=== PATIENT | female | born 1965 | race Caucasian/White ===

== ENCOUNTER → 2017-01-07 | Outpatient (CLI) | payer BC ==
--- NOTE | 2017-01-08 11:01 | MM ---
Reason for exam: screening (asymptomatic). Last mammogram was performed 1 year and 1 month ago. History: Patient is postmenopausal. Family history of breast cancer in mother at age 79. Took hormonal contraceptives for 15 years. Physical Findings: A clinical breast exam by your physician is recommended on an annual basis and results should be correlated with mammographic findings. MG Screening Mammo w CAD Bilateral CC and MLO view(s) were taken. Prior study comparison: December 08, 2015, bilateral MG screening mammo w CAD. June 14, 2015, right breast MG 3d diag mammo w/cad RT. There are scattered fibroglandular densities. There is no discrete abnormality. No significant changes when compared with prior studies. ASSESSMENT: Negative, BI-RAD 1 RECOMMENDATION: Routine screening mammogram of both breasts in 1 year.
== END | disposition home or self-care (01) ==
LOC: RADMAMWWP 16:33
PROVIDERS: ATTEND Family Medicine
DX: Z12.31 Encounter for screening mammogram for malignant neoplasm of breast (principal)

== ENCOUNTER → 2018-01-21 | Outpatient (CLI) | payer BC ==
--- NOTE | 2018-01-22 11:26 | MM ---
Reason for exam: screening (asymptomatic). Last mammogram was performed 1 year ago. History: Patient is postmenopausal. Family history of breast cancer in mother at age 79. Took hormonal contraceptives for 15 years. Physical Findings: A clinical breast exam by your physician is recommended on an annual basis and results should be correlated with mammographic findings. MG 3D Screening Mammo W/Cad Bilateral CC and MLO view(s) were taken. Prior study comparison: January 07, 2017, bilateral MG screening mammo w CAD. December 08, 2015, bilateral MG screening mammo w CAD. There are scattered fibroglandular densities. There is chronic nodularity in the right breast. There is no discrete abnormality. ASSESSMENT: Benign, BI-RAD 2 RECOMMENDATION: Routine screening mammogram of both breasts in 1 year.
== END | disposition home or self-care (01) ==
LOC: RADMAMWWP 16:38
PROVIDERS: ATTEND Family Medicine
DX: Z12.31 Encounter for screening mammogram for malignant neoplasm of breast (principal)
CPT/HCPCS: 77063; 77067

== ENCOUNTER 2018-01-23 16:16 | Emergency (ER) | payer BC ==
[2018-01-23 16:36] VITALS: RESP 18
--- NOTE | 2018-01-23 17:06 | ED ---
General Adult HPI - General Chief complaint: Extremity Injury, Upper Stated complaint: pain in rt shoulder Time Seen by Provider: 01/23/18 16:42 Source: patient, RN notes reviewed Mode of arrival: ambulatory Limitations: no limitations - History of Present Illness Initial comments: Shows a 52-year-old female who presents the emergency department with complaints of right shoulder pain. She stated that this pain started after she had a tetanus vaccine late December. Denies any trauma. She states she has seen her primary doctor and has tried Robaxin, naproxen, Flexeril, and Ultram without relief. She states that she has pain over her right neck and shoulder blade area with pain and tingling going down her arm with numbness in her hand. Patient denies any recent fever, chills, shortness of breath, chest pain, back pain, abdominal pain, nausea or vomiting, constipation or diarrhea, headaches or visual changes, or any other complaints. - Related Data Previous Rx's Medication Instructions Recorded Diazepam [Valium] 10 mg PO HS PRN 3 Days #3 tab 01/23/18 Ibuprofen [Motrin] 600 mg PO Q8HR PRN #40 day 01/23/18 Allergies Allergy/AdvReac Type Severity Reaction Status Date / Time Penicillins Allergy Anaphylaxis Verified 01/23/18 16:32 Review of Systems ROS Statement: Those systems with pertinent positive or pertinent negative responses have been documented in the HPI. ROS Other: All systems not noted in ROS Statement are negative. Past Medical History Past Medical History: No Reported History History of Any Multi-Drug Resistant Organisms: None Reported Past Surgical History: Appendectomy, Section, Tonsillectomy Past Psychological History: No Psychological Hx Reported Smoking Status: Never smoker Past Alcohol Use History: None Reported Past Drug Use History: None Reported General Exam - General Exam Comments Initial Comments: General: The patient is awake and alert, in no distress, and does not appear acutely ill. Neck: Slight tenderness to the right-sided musculature with movement and palpation. No obvious deformities. No bony tenderness. Full ROM. Cardiovascular: There is a regular rate and rhythm. No murmur, rub or gallop is appreciated. Radial pulses 2+ bilaterally. Respiratory: Lungs are clear to auscultation, respirations are non-labored, breath sounds are equal. No wheezes, stridor, rales, or rhonchi. Musculoskeletal: Full ROM of bilateral shoulders, elbows and hands. Strength 5/ 5 bilateral upper extremities. Neurological: A&O x 3. There are no obvious motor deficits. Coordination appears grossly intact. Speech is normal. Skin: Skin is warm and dry and no rashes or lesions are noted. No erythema over the right shoulder. Psychiatric: Normal mood and affect. Limitations: no limitations Course Vital Signs 01/23/18 16:32 Temperature 97.3 F L Pulse Rate 80 Respiratory 18 Rate Blood Pressure 156/92 O2 Sat by Pulse 100 Oximetry Medical Decision Making - Medical Decision Making Patient is a 52-year-old female who presents the emergency department with complaints of right shoulder pain radiating to the right trapezius area and the right upper extremity following a vaccination from late December. X-ray of the cervical spine revealed spondylotic changes. X-ray of the right shoulder was negative. Upon reexamination, she was crying saying she was in pain. She was given a dose of Toradol and Valium here. Will prescribe ibuprofen for pain and Valium for muscle spasms (switch from Flexeril to Valium). Will have her follow-up with Orthopedics. Case seen and discussed with Dr. Moreno. Disposition Clinical Impression: Cervical spondylosis with radiculopathy Disposition: HOME SELF-CARE Condition: Good Instructions: Cervical Radiculopathy (ED) Additional Instructions: Follow-up with PCP and orthopedics in 2 days. Return to emergency department if symptoms worsen or any other concerns. Prescriptions: Diazepam [Valium] 10 mg PO HS PRN 3 Days #3 tab PRN Reason: Muscle Spasm Ibuprofen [Motrin] 600 mg PO Q8HR PRN #40 day PRN Reason: Pain Is patient prescribed a controlled substance at d/c from ED?: Yes When asked, does pt state using other controlled substances?: Yes If prescribed controlled substance>3 days was MAPS reviewed?: Prescribed <3 Days Referrals: Windy Hadley MD [Primary Care Provider] - 1-2 days Devon Hall DO [Doctor of Osteopathic Medicine] - 1-2 days Time of Disposition: 19:16
--- NOTE | 2018-01-23 18:15 | XR ---
EXAMINATION TYPE: XR shoulder complete RT DATE OF EXAM: 01/23/2018 COMPARISON: NONE HISTORY: Shoulder pain TECHNIQUE: 3 views FINDINGS: I see no fracture nor dislocation. Joint spaces are normal. There are no pathologic calcifi cations. IMPRESSION: Negative right shoulder exam.
--- NOTE | 2018-01-23 18:16 | XR ---
EXAMINATION TYPE: XR cervical spine comp DATE OF EXAM: 01/23/2018 COMPARISON: NONE HISTORY: Shoulder pain TECHNIQUE: 6 views FINDINGS: There is some straightening of the vertebra. There is mild spurring of the endplates at lev els from C4 to C7. Posterior elements are intact. Atlantoaxial facet joint is normal. There are no ce rvical ribs. Neural foramina show minimal encroachment at C6-7 on the right side and C5-6 C6-7 on the left side due to uncovertebral spurring. IMPRESSION: Spondylotic changes as above. No fracture.
[2018-01-23] MEDS ORDERED: DIAZEPAM 5 MG/ML 2 ML INJ IM ONE (18:46)
[2018-01-23] MEDS ORDERED: KETOROLAC 30 MG/ML 1 ML VIAL IM STA (18:46)
[2018-01-23 19:29] VITALS: BP 129/83; PULSE 85; TEMP 98.3
== END 2018-01-23 19:28 | disposition home or self-care (01) ==
LOC: EC 16:16
DX: M47.22 Other spondylosis with radiculopathy, cervical region (principal); Z88.0 Allergy status to penicillin
CPT/HCPCS: 72050; 73030; 99283; 96372 ×2; J3360; J1885

== ENCOUNTER → 2018-04-09 | Outpatient (CLI) | payer BC ==
--- NOTE | 2018-04-09 14:10 | US ---
EXAMINATION TYPE: US thyroid st tissue head/neck DATE OF EXAM: 04/09/2018 COMPARISON: NONE CLINICAL HISTORY: E04.1 Thyroid Nodule. GLAND SIZE: Right Lobe: 3.7 x 1.7 x 1.8 cm Overall Parenchyma: homogenous Left Lobe: 3.4 x 1.2 x 1.4 cm Overall Parenchyma: homogeneous Isthmus Thickness: 0.3 cm NODULES RIGHT: # of nodules measured on right: 2 1. 1.7 x 1.3 x 1.5 cm anechoic cystic nodule at the mid pole with irregular margins. This nodule i s wider than tall and shows no intranodular vascularity. No priors 2. 0.5 X 0.4 x 0.4 cm echogenic mixed nodule at the upper pole with well-defined margins. This nodu le is wider than tall and shows intranodular vascularity. No priors LEFT: # of nodules measured on left: 1 1. 1.2 X 0.8 x 1.0 cm isoechoic solid nodule at the mid pole with well-defined margins. This nodul e is wider than tall and shows intranodular vascularity. No prior ISTHMUS: # of nodules measured in the isthmus: 0 Bilateral neck scanned, no evidence of lymphadenopathy. IMPRESSION: Solid and complex nodularity and some of which are greater than 1 cm in size and therefore consider t issue diagnosis.
== END | disposition home or self-care (01) ==
LOC: RADUSWWP 13:35
PROVIDERS: ATTEND Family Medicine
DX: E04.1 Nontoxic single thyroid nodule (principal)
CPT/HCPCS: 76536

== ENCOUNTER → 2018-08-05 | Outpatient (CLI) | payer BC ==
[2018-08-05 15:28] LABS: Anion Gap 8 mmol/L; Blood Urea Nitrogen 20 mg/dL (7-17); Calcium 10.2 mg/dL (8.4-10.2); Carbon Dioxide 25 mmol/L (22-30); Chloride 108 mmol/L (98-107); Glucose 91 mg/dL (74-99); Potassium 4.7 mmol/L (3.5-5.1); Sodium 141 mmol/L (137-145)
[2018-08-05 15:29] LABS: INR 0.9 (<1.2); Partial Thromboplastin Time 26.6 sec (22.0-30.0); Prothrombin Time 9.7 sec (9.0-12.0)
[2018-08-05 15:42] LABS: Basophils # (A) 0.1 k/uL (0-0.2); Basophils % (A) 1 %; Eosinophils # (A) 0.2 k/uL (0-0.7); Eosinophils % (A) 2 %; HCT 45.4 % (34.0-46.0); HGB 15.4 gm/dL (11.4-16.0); Lymphocytes # (A) 3.3 k/uL (1.0-4.8); Lymphocytes % (A) 35 %; MCH 29.1 pg (25.0-35.0); MCV 85.4 fL (80.0-100.0); Mean Platelet Volume 7.1; Monocytes # (A) 0.3 k/uL (0-1.0); Monocytes % (A) 3 %; Neutrophils # (A) 5.4 k/uL (1.3-7.7); Neutrophils % (A) 58 %; Platelet Count 283 k/uL (150-450); RBC 5.31 m/uL (3.80-5.40); WBC 9.4 k/uL (3.8-10.6)
--- NOTE | 2018-08-05 15:57 | XR ---
EXAMINATION TYPE: XR chest 2V DATE OF EXAM: 08/05/2018 COMPARISON: NONE HISTORY: Presurgical clearance TECHNIQUE: Frontal and lateral views of the chest are obtained. FINDINGS: There is strand-like bibasilar atelectasis seen on the frontal view only. There is no foca l air space opacity, pleural effusion, or pneumothorax seen. The cardiac silhouette size is within n ormal limits. The osseous structures are intact. Very mild dextroscoliosis of the thoracic spine is noted. IMPRESSION: Strand-like bibasilar atelectasis otherwise no acute cardiopulmonary process.
[2018-08-05 16:33] LABS: Appearance,Urine Clear (Clear); Bilirubin,Urine Negative (Negative); Blood,Urine Negative (Negative); Color,Urine Yellow; Glucose,Urine (UA) Negative (Negative); Ketones,Urine 1+ (Negative); Leukocyte Esterase,Urine Negative (Negative); Nitrite,Urine Negative (Negative); Protein,Urine Negative (Negative); Specific Gravity,Urine 1.017 (1.001-1.035); Urobilinogen,Urine <2.0 mg/dL (<2.0)
== END | disposition home or self-care (01) ==
LOC: LABPAT 15:03
PROVIDERS: ATTEND Orthopaedic Surgery Orthopaedic Surgery of the Spine
DX: Z01.818 Encounter for other preprocedural examination (principal); J98.11 Atelectasis; M48.02 Spinal stenosis, cervical region; M50.20 Other cervical disc displacement, unspecified cervical region
CPT/HCPCS: 36415; 71046; 80048; 81003; 85025; 85610; 85730; 93005

== ENCOUNTER 2018-08-17 11:31 | Observation (INO) | payer BC ==
[~2018-08-17 11:31] MED LIST: BACITRACIN 50,000 UNIT, POLYMYXIN B 500,000 UNIT in SODIUM CHLORIDE 0.9% IRRIGATIO 1,00... IRRIGATION ONE; CLINDAMYCIN 900 MG in DEXTROSE 5% IN WATER 50 ML IVPB ONE; DEXAMETHASONE SOD PHOSPHATE 10 MG/ML 1 ML VIAL IV ONE; LIDOCAINE 1% 20 ML VIAL (10MG/ML) FOR IV START INTRADERMA PRN; MIDAZOLAM 2 MG/2 ML VIAL IV PRN; ONDANSETRON 4 MG/2 ML VIAL IVP ONE
[2018-08-17] MEDS: LACTATED RINGERS 1,000 ML IV SCH (12:07)
[2018-08-17] MEDS ORDERED: KETAMINE 10 MG/ML 20 ML VIAL ONE (12:29)
[2018-08-17] MEDS ORDERED: fentaNYL (PF) 50 MCG/ML 2 ML AMP ONE (12:29)
[2018-08-17] MEDS ORDERED: PROPOFOL 10 MG/ML 20 ML VIAL IV ONE (12:29)
[2018-08-17] MEDS ORDERED: ePHEDrine 50 MG/ML 1 ML AMP ONE (12:29)
[2018-08-17] MEDS ORDERED: LIDOCAINE 1% INJ 10MG/ML (20 ML MDV) ONE (12:29)
[2018-08-17] MEDS ORDERED: MIDAZOLAM 2 MG/2 ML VIAL ONE (12:29)
[2018-08-17] MEDS ORDERED: SUCCINYLCHOLINE CHLORIDE 100 MG/5 ML SYR IV ONE (12:29)
[2018-08-17] MEDS ORDERED: BUPIVACAINE-EPI 0.5%-1:200,000 10 ML VIAL SQ ONE ×2 (13:13→14:52)
[2018-08-17] MEDS ORDERED: GELATIN SPONGE,ABSORB (LARGE) 1 EACH SPONGE MISCELLANE ONE (13:55)
[2018-08-17] MEDS ORDERED: THROMBIN (BOVINE) 5,000 UNIT VIAL TOPICAL ONE (13:56)
--- NOTE | 2018-08-17 13:57 | XR ---
EXAMINATION TYPE: XR cervical spine 1V DATE OF EXAM: 08/17/2018 CLINICAL HISTORY: Needle placement TECHNIQUE: Crosstable lateral view of the cervical spine is submitted. COMPARISON: None. FINDINGS: Localizers noted at the anterior C5-6 disc space level. IMPRESSION: Intraoperative localization.
[2018-08-17] MEDS ORDERED: LACTATED RINGERS 1,000 ML IV ONE ×2 (14:38)
--- NOTE | 2018-08-17 15:05 | XR ---
EXAMINATION TYPE: XR cervical spine 1V DATE OF EXAM: 08/17/2018 COMPARISON: NONE HISTORY: Hardware evaluation TECHNIQUE: Portable crosstable lateral intraoperative view of the cervical spine FINDINGS: Noted are changes of ACDF extending from C4 through C7 with anterior fixation plate and int ervertebral body spacers noted. Alignment appears anatomic. IMPRESSION: Postoperative alignment is appropriate as noted.
[2018-08-17] MEDS ORDERED: MAGNESIUM HYDROXIDE 2,400 MG/10 ML CUP PO PRN (15:09)
[2018-08-17] MEDS ORDERED: ONDANSETRON 4 MG/2 ML VIAL IVP PRN (15:09)
[2018-08-17] MEDS ORDERED: HYDROmorphone 0.5 MG/0.5 ML SYRINGE IVP PRN (15:09)
[2018-08-17] MEDS ORDERED: ACETAMINOPHEN TAB 325 MG TAB PO PRN (15:09)
[2018-08-17] MEDS ORDERED: BENZOCAINE/MENTHOL LOZENG 1 EACH LOZENGE MUCOUS MEM PRN (15:09)
[2018-08-17] MEDS ORDERED: traMADol 50 MG TAB PO PRN ×2 (15:11)
--- NOTE | 2018-08-17 15:17 | P.OP ---
Date of Procedure: 08/17/18 Preoperative Diagnosis: Cervical stenosis C4 5 C5 6 C6 7, herniated nucleus pulposis C4 5 C5 6 C6 7, upper extremity radiculopathy worse on the right and left, degenerative disc disease, upper joint weakness Postoperative Diagnosis: Same Anesthesia: GETA Pathology: none sent Condition: stable Disposition: PACU Description of Procedure: BRIEF OPERATIVE NOTE Preoperative Diagnosis:Cervical stenosis C4 5 C5 6 C6 7, herniated nucleus pulposis C4 5 C5 6 C6 7, upper extremity radiculopathy worse on the right and left, degenerative disc disease, upper joint weakness Postoperative Diagnosis: Same Procedure: Anterior cervical decompression with discectomy and fusion C4 5 C5 6 C6 7 Placement of interbody graft C4 5 C5 6 C6 7 Application of anterior cervical plate C4 5 6 and 7 Surgeon: Dr. Hall A And P Technician: Cj De La Cruz is present throughout the entire the case persistence during positioning, dissection, exposure, visualization, and all crucial elements of the case as well as closure. Anesthesia: General anesthesia Estimated blood loss: Approximately 75 mL Complications: None apparent Components implanted: K2M [place] anterior cervical plate system with a 51 mm plate and 8 screws measuring 14 mm in length and 3 Vikos interbody allograft bone graft with 1 mL of DBX bone putty to supplemental bone graft Disposition: To recovery room in good stable condition. OPERATIVE INDICATIONS The patient has had long-standing issues in their neck and upper extremities, particularly worse on the right and left with some issues with weakness on the right. She is found have disc herniation with evidence of stenosis at C4 5 C5 6 and C6 7 which correlated well with her neck and upper external symptoms The patient has been through conservative treatment. She is not having any lasting benefit despite aggressive conservative treatment. We discussed various treatment options including surgery, and the patient wishes to proceed with surgery We discussed the risk, patient's alternatives and benefits of surgery including but not limited to, risk of bleeding risk of infection, risk of need for further surgery, risk of decreased, loss of motion, muscle function, malunion nonunion, hardware failure, nerve damage, paralysis, heart attack, and . OPERATIVE SUMMARY After discussing all the risks, patient alternatives and benefits at length, the patient elected to proceed with surgical intervention, signed informed consent, and presented for their procedure. The patient was seen and examined in the preoperative holding area and the surgical site was marked. The patient was given antibiotics and brought to the operating room. The patient was positioned on the operating room table in a supine position being careful to pad any bony prominences and pressure points. The patient was sedated and intubated by anesthesia in standard fashion. Once the airway and C- spine were stabilized the patient's arms were padded and tucked at her side, with her shoulders gently taped. The head was placed in a donut pad with the neck in good neutral alignment and position. We were careful to maintain the patient's cervical spine and good neutral alignment and position throughout. The patient was prepped and draped in a normal standard fashion. An appropriate timeout and keystone protocol performed. We were able to proceed with the surgery. The local wound area was infiltrated with local anesthetic. An incision was made transversely approximately 2-1/2 cm over the appropriate levels at C5 6. Dissection was taken down subcutaneously to the level of the platysma which was split in line with its fibers. Dissection was taken with a carotid approach, with the trachea and esophagus medial and the carotid sheath laterally. We dissected down to the anterior surface of the vertebral bodies at C4 5 6 and 7. Intraoperative x-ray was taken which showed a marker at the appropriate level of C5 6. With the appropriate level positively confirmed, we were able to proceed with discectomy at the appropriate levels. We started first at C4 5 and then moved to C5 6 and then at C6 7. All of the operative levels were exposed appropriately. The patient had all their twitches back, and there was no evidence of recurrent laryngeal issue. The wound was copiously irrigated and suctioned dry as had been done periodically throughout the case. At the appropriate level/levels, starting at C4 5 and then moving C5 6 and then to C6 7, I established an annulotomy with an 11 blade scalpel. A discectomy was performed with a combination of pituitary rongeurs, curettes, a high-speed bur, and Kerrison rongeurs. The posterior longitudinal ligament was taken down as were any posterior osteophytes. There was significant osteophyte formation at each levels and these were taken down during the procedure as was the discectomy. There is evidence of disc herniation at each levels causing stenosis and the disc was removed as well as the posterior longitudinal ligament and a foraminotomy was performed. This gave good central and bilateral foraminal decompression. There is no evidence of any dural tear or leak. The endplates were prepared with a high-speed bur. With the endplates in good parallel position, I was able to size for the appropriate size interbody graft. The wound was irrigated and suctioned dry the graft was prepared and malleted into position. It had good alignment and position with the anterior surface flush with the anterior surface of the vertebral bodies. This was done diego larly the appropriate levels at C4 5 C5 6 and C6 7. With the grafts intact, I was able to measure and contour and appropriate sized plate. The plate was positioned at the midline over the appropriate levelsC4 5 C5 6 C6 7. Screw holes were established with a hand drill and drill guide. Screws were placed in good alignment and position with excellent bony purchase. They were seated under the locking device. The construct was checked and found to be stable. Intraoperative x-ray was taken which showed good alignment and position of the implants at the appropriate levels. There was no evidence of any dural tear or leak. Good hemostasis was maintained. The wound was copiously irrigated and suctioned dry as had been done periodically throughout the case. The platysma was closed with absorbable suture. The subcutaneous tissue was closed. The subcuticular tissue was closed with absorbable suture. The wound was cleaned and dried and dressed appropriately. A soft cervical collar was placed appropriately. The patient was woken up by anesthesia, extubated, transferred back gently to their hospital bed and brought to the recovery room in good stable condition. The patient will be admitted to the hospital for appropriate postoperative care, medical management and monitoring. We will continue to follow them closely about the postoperative course.
[2018-08-17] MEDS: HYDROmorphone 0.5 MG/0.5 ML SYRINGE IVP PRN ×2 (15:45→15:50)
[2018-08-17] MEDS: fentaNYL (PF) 50 MCG/ML 2 ML AMP IV PRN ×2 (16:00→16:05)
[2018-08-17 16:36] VITALS: BMI 33.8
[2018-08-17] MEDS: SODIUM CHLORIDE 0.9% 1,000 ML IV SCH (16:41)
[2018-08-17] MEDS: CYCLOBENZAPRINE 10 MG TAB PO PRN (17:16)
[2018-08-17] MEDS: CLINDAMYCIN 900 MG in DEXTROSE 5% IN WATER 50 ML IVPB SCH ×2 (19:07)
[2018-08-17] MEDS: HYDROmorphone 1 MG/ML 1 ML SYRINGE IVP PRN ×2 (19:07→22:12)
[2018-08-17] MEDS: HYDROcodone/APAP 5-325MG 1 EACH TAB PO PRN (21:49)
[2018-08-18] MEDS: CYCLOBENZAPRINE 10 MG TAB PO PRN ×2 (02:20→10:15)
[2018-08-18] MEDS: HYDROmorphone 1 MG/ML 1 ML SYRINGE IVP PRN ×2 (02:21→07:01)
[2018-08-18] MEDS: CLINDAMYCIN 900 MG in DEXTROSE 5% IN WATER 50 ML IVPB SCH ×2 (04:12)
[2018-08-18] MEDS: HYDROcodone/APAP 5-325MG 1 EACH TAB PO PRN ×3 (04:15→12:18)
[2018-08-18] MEDS: SODIUM CHLORIDE 0.9% 1,000 ML IV SCH (05:46)
[2018-08-18] MEDS: LACTATED RINGERS 1,000 ML IV SCH (06:47)
[2018-08-18 08:33] VITALS: BP 115/76; PULSE 84; RESP 15; TEMP 98.1
--- NOTE | 2018-08-18 08:56 | P.DS ---
Providers Date of admission: 08/18/18 05:27 Expected date of discharge: 08/18/18 Attending physician: Devon Hall Primary care physician: Windy Hadley - Discharge Diagnosis(es) (1) Upper extremity weakness Current Visit: Yes Status: Acute (2) Radiculopathy affecting upper extremity Current Visit: Yes Status: Acute (3) Cervical stenosis of spine Current Visit: Yes Status: Acute (4) Herniated nucleus pulposus, C4-5 Current Visit: Yes Status: Acute (5) Herniated nucleus pulposus, C5-6 Current Visit: Yes Status: Acute (6) Herniated nucleus pulposus, C6-7 Current Visit: Yes Status: Acute Hospital Course: This is a pleasant 53-year-old female who presented with C4-5, C5-6, and C6 7 cervical stenosis and herniated nucleus pulposus, upper extremity radiculopathy greater on the right than the left, cervical degenerative disc disease, and upper extremity weakness who failed outpatient conservative therapy. She was admitted for a C4-5, C5-6, and C6-7 anterior cervical decompression and fusion. The patient tolerated the procedure well and did well postoperatively. She continues to have some numbness in her right hand postoperatively. She does feel her right upper extremity pain has improved. She's been able to ambulate to the restroom without significant difficulty. She continues keep her soft cervical collar intact. She has been able to eat softer foods without significant difficulty but does have difficulty with heavy foods. She feels she is ready for discharge home today. Condition on day of discharge stable. Patient will be discharged home. Patient was cleared preoperatively for surgery by Dr. Hadley. Patient currently denies any nausea, vomiting, fever, or chills. Patient voiding freely without difficulty. Patient may shower Tegaderm dressing intact. Patient may remove Tegaderm dressing in 3 days and shower without a dressing at that time. Patient should keep Steri-Strips intact and allow them to fall off naturally. Patient should refrain from driving until at least after their first follow-up appointment in the office. Patient should avoid excessive neck flexion, extension, rotation, and lateral sidebending; no overhead lifting; no lifting greater than 10 pounds. MAPS has been reviewed today, 08/18/2018, with an Overall Overdose Risk Score of 170 and narcotic score of 260. An "Opiod Start Talking" Forn has been signed by the patient and myself in place in the patient's chart. A prescription has been written for [place] 5 mg/325 mg 1 tablet every 4 hours as needed for pain, dispense #42. Patient may resume Flexeril as previous he prescribed as needed for relief of her symptoms. She should discontinue Ultram while taking [place]. Physical Exam on day of discharge: Patient is awake, alert, and oriented 3 Vital signs stable Good chest excursion with deep inspiration and expiration Abdomen soft nontender No signs or symptoms of DVT; no calf pain Full range of motion of the cervical spine with adequate flexion, extension, and bilateral rotation Cath Lab Manager strength, thumb strength, interosseous strength, biceps strength, triceps strength, and shoulder strength positive sustained bilaterally Soft cervical collar intact Incision is clean, dry, and intact; no erythema, purulence, or signs of infection Tegaderm dressing and non-stick Telfa intact Procedures: C4-5, C5-6, and C6-7 anterior cervical decompression and fusion Patient Condition at Discharge: Stable Plan - Discharge Summary Discharge Rx Participant: No New Discharge Prescriptions: New HYDROcodone/APAP 5-325MG [[place] 5-325] 1 tab PO Q4HR PRN 7 Days #42 tab PRN Reason: Pain No Action Cyclobenzaprine [Flexeril] 10 mg PO TID PRN PRN Reason: muscle spasms traMADol HCl [Ultram] 50 mg PO Q4H PRN PRN Reason: Pain Discharge Medication List Cyclobenzaprine [Flexeril] 10 mg PO TID PRN 08/10/18 [History] traMADol HCl [Ultram] 50 mg PO Q4H PRN 08/10/18 [History] HYDROcodone/APAP 5-325MG [[place] 5-325] 1 tab PO Q4HR PRN 7 Days #42 tab 08/18/18 [Rx] Follow up Appointment(s)/Referral(s): Cj Andres, CHRIS [PHYSICIAN STRINGED INSTRUMENT REPAIRER] - 08/31/18 (Patient may follow-up with Cj Andres PA-C or Dr. Bradley Hall at [facility] previously scheduled on 08/31/2018.) Activity/Diet/Wound Care/Special Instructions: 1. Patient may shower with Tegaderm dressing intact. 2. Patient may remove Tegaderm dressing in 3 days and shower without a dressing at that time. 3. Patient should keep Steri-Strips intact and allow them to fall off naturally. 4. Patient should refrain from driving until at least after their first follow- up appointment in the office. 5. Patient should avoid excessive cervical flexion, extension, rotation, sidebending; avoid overhead lifting 6. Wear soft cervical collar for comfort support as needed 7. Take medications as prescribed 8. Do not soak in tub Discharge Disposition: HOME SELF-CARE
== END 2018-08-18 12:32 | disposition home or self-care (01) ==
LOC: OR 11:31 → EDSTATUS 13:00 → 4SSUR 15:24 → OR 08-18 06:34
PROVIDERS: ADMIT Orthopaedic Surgery Orthopaedic Surgery of the Spine; ATTEND Orthopaedic Surgery Orthopaedic Surgery of the Spine
DX: M48.02 Spinal stenosis, cervical region (principal); M50.121 Cervical disc disorder at C4-C5 level with radiculopathy; E04.1 Nontoxic single thyroid nodule; R53.1 Weakness; Z79.2 Long term (current) use of antibiotics; Z79.891 Long term (current) use of opiate analgesic; Z79.899 Other long term (current) drug therapy; Z97.2 Presence of dental prosthetic device (complete) (partial); Z90.49 Acquired absence of other specified parts of digestive tract; Z82.49 Family history of ischemic heart disease and other diseases of the circulatory system; Z82.0 Family history of epilepsy and other diseases of the nervous system; Z83.3 Family history of diabetes mellitus
CPT/HCPCS: 22551; 22552 ×2; 22845; 20931; 72020; G0378; C1713 ×2; C1762 ×2; J2250; J2405; J2001; J3010; J1170 ×3; J0330; J2704; 86850; 86900; 86901

== ENCOUNTER → 2018-11-19 | Outpatient (CLI) | payer BC ==
--- NOTE | 2018-11-19 10:10 | US ---
EXAMINATION TYPE: US thyroid st tissue head/neck DATE OF EXAM: 11/19/2018 COMPARISON: US CLINICAL HISTORY: E04.2 Nontoxic Multinodular Goiter. GLAND SIZE: Right Lobe: 4.6 x 2.0 x 1.4 cm Overall Parenchyma: homogenous Left Lobe: 3.8 x 1.4 x 1.2 cm Overall Parenchyma: homogeneous Isthmus Thickness: 0.4 cm NODULES RIGHT: # of nodules measured on right: 3 1. 2.1 X 2.3 x 1.4 cm hypoechoic mixed nodule at the mid pole with poorly defined margins; present with microcalcifications. This nodule is wider than tall and shows intranodular vascularity. Prior size: 1.7 x 1.5 x 1.3 cm 2. 0.5 X 0.7 x 0.5 cm hyperechoic solid nodule at the lower pole with well-defined margins. This no dule is wider than tall and shows no intranodular vascularity. Prior size: no previous 3. 0.4 X 0.3 x 0.3 cm hypoechoic mixed nodule at the upper pole with well-defined margins. This nod ule is wider than tall and shows no intranodular vascularity. Prior size: 0.5 x 0.5 x 0.4 cm LEFT: # of nodules measured on left: 2 1. 1.5 X 1.5 x 0.7 cm isoechoic mixed nodule at the mid pole with well-defined margins; present wit h small calcifications. This nodule is wider than tall and shows intranodular vascularity. Prior size: 1.2 x 0.8 x 1.0 cm 2. 0.6 X 0.5 x 0.4 cm hypoechoic solid nodule at the mid pole with well-defined margins. This nodul e is wider than tall and shows no intranodular vascularity. Prior size: no previous ISTHMUS: # of nodules measured in the isthmus: 0 Bilateral neck scanned: no evidence of lymphadenopathy. Accounting for technical differences no significant interval change felt present. IMPRESSION: Multinodular goiter redemonstrated. No definitive new greater than 1 cm nodules.
== END | disposition home or self-care (01) ==
LOC: RADUSWWP 08:30
PROVIDERS: ATTEND Internal Medicine Endocrinology, Diabetes & Metabolism
DX: E04.2 Nontoxic multinodular goiter (principal)
CPT/HCPCS: 76536; 84443

== ENCOUNTER → 2019-03-29 | Outpatient (CLI) | payer BC ==
--- NOTE | 2019-03-31 14:38 | MM ---
Reason for exam: screening (asymptomatic). Last mammogram was performed 1 year and 2 months ago. History: Patient is postmenopausal. Family history of breast cancer in mother at age 79. Took hormonal contraceptives for 15 years. Physical Findings: A clinical breast exam by your physician is recommended on an annual basis and results should be correlated with mammographic findings. MG 3D Screening Mammo W/Cad Bilateral CC and MLO view(s) were taken. Prior study comparison: January 21, 2018, bilateral MG 3d screening mammo w/cad. January 07, 2017, bilateral MG screening mammo w CAD. There are scattered fibroglandular densities. There is no discrete abnormality. ASSESSMENT: Negative, BI-RAD 1 RECOMMENDATION: Routine screening mammogram of both breasts in 1 year.
== END | disposition home or self-care (01) ==
LOC: RADMAMWWP 15:59
PROVIDERS: ATTEND Family Medicine
DX: Z12.31 Encounter for screening mammogram for malignant neoplasm of breast (principal)
CPT/HCPCS: 77063; 77067

== ENCOUNTER → 2019-06-11 | Outpatient (CLI) | payer BC ==
--- NOTE | 2019-06-11 15:28 | US ---
EXAMINATION TYPE: US thyroid st tissue head/neck DATE OF EXAM: 06/11/2019 COMPARISON: 11/19/2018 and 04/09/2018 CLINICAL HISTORY: E04.2 Nontoxic multinodular goiter. Thyroid nodules GLAND SIZE: Right Lobe: 5.6 x 1.7 x .8 cm Overall Parenchyma: heterogenous Left Lobe: 3.8 x 1.3 x 1.5 cm Overall Parenchyma: heterogeneous Isthmus Thickness: .3 cm NODULES RIGHT: # of nodules measured on right: 3 1. 2.0 X 1.3 x 2.0 cm mixed nodule at the mid pole with poorly defined margins; present with microc alcifications. This nodule is wider than tall and shows intranodular vascularity. Prior size: 2.1 x 2.3 x 1.4 cm 2. .5 X .4 x .5 cm hyperechoic solid nodule at the lower pole with well-defined margins; . This nod ule is wider than tall and shows no intranodular vascularity. Prior size: .5 x .7 x .5 cm 3. .5 X .4 x .5 cm hypoechoic solid nodule at the mid pole with poorly defined margins; . This nodu le is wider than tall and shows intranodular vascularity. Prior size: .4 x .3 x .4 cm LEFT: # of nodules measured on left: 2 1. .5 X .3 x .6 cm hypoechoic solid nodule at the lower pole with well-defined margins; . This nod ule is wider than tall and shows intranodular vascularity. Prior size: .6 x .5 x .4 cm 2. 1.3 X .6 x 1.1 cm hypoechoic solid nodule at the mid pole with poorly defined margins; . This no dule is wider than tall and shows intranodular vascularity. Prior size: 1.5 x .5 x .7 cm ISTHMUS: # of nodules measured in the isthmus: 1 1. .7 cm nodule at the right pole with well-defined margins; . Prior size No prior. Bilateral neck scanned, no evidence of lymphadenopathy. IMPRESSION: Multinodular goiter. There is interval growth of the dominant right thyroid nodule in [place] [facility] [employer] [facility] to the exam of 2018 previously measuring 1.7 x 1.3 x 1.5 cm and now measuring 2.0 x 1.3 x 2.0 cm. Fine-needle aspiration could be considered. The majority the remaining nodules are subcentimeter and too small for biopsy. The dominant left thyroid nodule is similar in size.
== END | disposition home or self-care (01) ==
LOC: RADUSWWP 14:38
PROVIDERS: ATTEND Internal Medicine Endocrinology, Diabetes & Metabolism
DX: E04.2 Nontoxic multinodular goiter (principal)
CPT/HCPCS: 76536

== ENCOUNTER → 2019-09-28 | Day surgery (SDC) | payer BC ==
[2019-09-24 09:23] VITALS: BMI 28.7
[~2019-09-28] MED LIST changes: -BACITRACIN 50,000 UNIT, POLYMYXIN B 500,000 UNIT in SODIUM CHLORIDE 0.9% IRRIGATIO 1,00... IRRIGATION ONE; -CLINDAMYCIN 900 MG in DEXTROSE 5% IN WATER 50 ML IVPB ONE; -DEXAMETHASONE SOD PHOSPHATE 10 MG/ML 1 ML VIAL IV ONE; +LACTATED RINGERS 1,000 ML IV SCH; +LIDOCAINE 1% (10MG/ML) FOR IV START INTRADERMA ONE; -LIDOCAINE 1% 20 ML VIAL (10MG/ML) FOR IV START INTRADERMA PRN; +LIDOCAINE 1% INJ 10MG/ML (20 ML MDV) ONE; -MIDAZOLAM 2 MG/2 ML VIAL IV PRN; -ONDANSETRON 4 MG/2 ML VIAL IVP ONE; +PROPOFOL 10 MG/ML 20 ML VIAL IV ONE
[2019-09-28 07:09] VITALS: TEMP 97.7
--- NOTE | 2019-09-28 08:09 | P.PCN ---
Date of Procedure: 09/28/19 Description of Procedure: BRIEF HISTORY: Patient is a 54-year-old female who presents for outpatient colonoscopy for history of colon polyps. Last colonoscopy 5 years ago and significant polypectomy. Denies any change in bowel habits, blood per rectum or abdominal pain. She does report a family history of colon cancer in her mother diagnosed 2 years ago. PROCEDURE PERFORMED: Colonoscopy with polypectomy. PREOPERATIVE DIAGNOSIS: Personal history of colon polyps, last colonoscopy 5 years ago, family history of colon cancer. ESTIMATED BLOOD LOSS: Minimal. IV sedation per Anesthesia. PROCEDURE: After informed consent was obtained, the patient, was brought into the endoscopy unit. IV sedation was administered by Anesthesia under continuous monitoring. Digital rectal examination was normal. Initially the Olympus CF-190 flexible video colonoscope was then inserted in the rectum, gradually advanced into the cecum without any difficulty. Careful examination was performed as the scope was gradually being withdrawn. Ileocecal valve and the appendiceal orifice were visualized and appeared normal. Prep was excellent. Mucosa of the cecum, ascending colon, transverse colon, descending colon, sigmoid colon, and rectum appeared normal. Diminutive 2 mm descending colon polyp removed with cold forcep polypectomy. 2 diminutive polyps in the sigmoid colon measuring 2 mm and 1 mm in size removed with cold forcep polypectomy. Retroflexion was performed in the rectum and no lesions were seen. The patient tolerated the procedure well. IMPRESSION: 3 diminutive polyps removed with cold forceps, 2 from the sigmoid and 1 from the descending colon. Otherwise normal-appearing colon from rectum to cecum. RECOMMENDATIONS: Findings of this examination were discussed with the patient. Okay to resume diet. Okay to resume medications. Await pathology from polypectomy. Recommend repeat colonoscopy in 5 years given family history of colon cancer.
[2019-09-28 08:14] VITALS: RESP 17
[2019-09-28 08:27] VITALS: BP 111/77; PULSE 53
== END ==
LOC: ORWHC2ENDO 06:50
PROVIDERS: ATTEND Internal Medicine
DX: Z12.11 Encounter for screening for malignant neoplasm of colon (principal); D12.5 Benign neoplasm of sigmoid colon; Z86.010 Personal history of colon polyps; Z80.0 Family history of malignant neoplasm of digestive organs; Z88.0 Allergy status to penicillin; Z98.1 Arthrodesis status; Z90.49 Acquired absence of other specified parts of digestive tract; Z90.89 Acquired absence of other organs; Z98.891 History of uterine scar from previous surgery
CPT/HCPCS: 88305; 45380; J2001; J2704

== ENCOUNTER → 2020-07-12 | Outpatient (CLI) | payer BC ==
--- NOTE | 2020-07-14 10:13 | MM ---
Reason for exam: screening (asymptomatic). Last mammogram was performed 1 year and 3 months ago. History: Patient is postmenopausal. Family history of breast cancer in mother at age 79. Took hormonal contraceptives for 15 years. Physical Findings: A clinical breast exam by your physician is recommended on an annual basis and results should be correlated with mammographic findings. MG 3D Screening Mammo W/Cad Bilateral CC and MLO view(s) were taken. Prior study comparison: March 29, 2019, bilateral MG 3d screening mammo w/cad. January 21, 2018, bilateral MG 3d screening mammo w/cad. There are scattered fibroglandular densities. There is no discrete abnormality. No significant changes when compared with prior studies. ASSESSMENT: Negative, BI-RAD 1 RECOMMENDATION: Routine screening mammogram of both breasts in 1 year.
== END | disposition home or self-care (01) ==
LOC: RADMAMWWP 09:02
PROVIDERS: ATTEND Family Medicine
DX: Z12.31 Encounter for screening mammogram for malignant neoplasm of breast (principal); Z78.0 Asymptomatic menopausal state; Z80.3 Family history of malignant neoplasm of breast
CPT/HCPCS: 77063; 77067

== ENCOUNTER → 2020-07-12 | Outpatient (CLI) | payer BC ==
--- NOTE | 2020-07-12 13:19 | US ---
EXAMINATION TYPE: US thyroid st tissue head/neck DATE OF EXAM: 07/12/2020 COMPARISON: US CLINICAL HISTORY: E04.2 Nontoxic multinodular goiter. F/U Goiter GLAND SIZE: Right Lobe: cm Overall Parenchyma: heterogenous Left Lobe: cm Overall Parenchyma: heterogeneous Isthmus Thickness: cm NODULES RIGHT: # of nodules measured on right: 3 1. 2.0 X 1.1 x 1.4 cm, mid, mixed cystic and solid, hypoechoic nodule, which is wider than tall, wi th smooth margins, without echogenic foci. Follow-up exam of this nodule in 1 year is recommended. Prior size: 2.0 x 1.3 x 2.0 cm 2. 0.6 X 0.4 x 0.7 cm, lower, solid or almost completely solid, hyperechoic nodule, which is wider than tall, with smooth margins, without echogenic foci. Prior size: 0.5 x 0.4 x 0.5 cm 3. 0.6 X 0.4 x 0.7 cm, upper, solid or almost completely solid, hypoechoic nodule, which is wider t vizcarra tall, with smooth margins, without echogenic foci. Prior size: 0.5 x 0.4 x 0.5 cm LEFT: # of nodules measured on left: 2 1. 1.5 X 0.9 x 1.3 cm, mid, solid or almost completely solid, isoechoic nodule, which is wider than tall, with ill-defined margins, without echogenic foci. Follow-up exam of this nodule in 1 year is r ecommended. Prior size: 1.3 x 0.6 x 1.1 cm 2. 0.6 X 0.4 x 0.5 cm, mid, solid or almost completely solid, hypoechoic nodule, which is wider th an tall, with smooth margins, without echogenic foci. Prior size: 0.6 x 0.3 x 0.5 cm ISTHMUS: # of nodules measured in the isthmus: 1 1. 0.7 X 0.4 x 0.6 cm solid or almost completely solid, hypoechoic nodule, which is wider than tall , with ill-defined margins, without echogenic foci. Prior size: 0.7 cm Bilateral neck scanned, no evidence of lymphadenopathy. Nodules bilaterally, some stable, some have s lightly increased in size. IMPRESSION: Bilateral thyroid nodules. These are mildly suspicious and follow-up exam in one year is recommended. 2017 ACR TI-RADS LEVEL: TR-RADS 3 - Mildly Suspicious: Follow if > 1.5 cm, FNA if > 2.5 cm *Highest TI-RADS level nodule reported
== END | disposition home or self-care (01) ==
LOC: RADUSWWP 09:05
PROVIDERS: ATTEND Internal Medicine Endocrinology, Diabetes & Metabolism
DX: E04.2 Nontoxic multinodular goiter (principal)
CPT/HCPCS: 76536

== ENCOUNTER → 2021-07-13 | Outpatient (CLI) | payer BC ==
--- NOTE | 2021-07-13 11:51 | US ---
EXAMINATION TYPE: US thyroid st tissue head/neck DATE OF EXAM: 07/13/2021 COMPARISON: NONE CLINICAL HISTORY: E04.2 Goiter. Thyroid nodules GLAND SIZE: Right Lobe: 5.2 x 1.4 x 1.7 cm Overall Parenchyma: homogenous Left Lobe: 3.9 x 1.4 x 1.5 cm Overall Parenchyma: homogeneous Isthmus Thickness: .2 cm NODULES RIGHT: # of nodules measured on right: 3 1. 1.4 X 1.1 x 1.4 cm, mid , mixed cystic and solid, hypoechoic nodule, which is wider than tall, w ith smooth margins, without echogenic foci. TR 3 Prior size: 2.0 x 1.1 x 1.4 cm 2. .6 X .4 x .7 cm, mid , solid or almost completely solid, hypoechoic nodule, which is wider than tall, with smooth margins, without echogenic foci. Prior size: .6 x .4 x .7 cm 3. .6 X .6 x .4 cm, lower , solid or almost completely solid, hyperechoic nodule, which is wider th an tall, with smooth margins, without echogenic foci. Prior size: .6 x .4 x .7 cm LEFT: # of nodules measured on left: 2 1. 1.4 X .8 x 1.2 cm, mid , solid or almost completely solid, hypoechoic nodule, which is wider ann n tall, with smooth margins, without echogenic foci. Prior size: 1.5 x .9 x 1.3 cm 2. .5 X .4 x .5 cm, mid , mixed cystic and solid, hypoechoic nodule, which is wider than tall, wit h smooth margins, without echogenic foci. Prior size: .6 x .4 x .7 cm ISTHMUS: # of nodules measured in the isthmus: 1 1. .8 X .4 x .6 cm solid or almost completely solid, hypoechoic nodule, which is wider than tall, w ith smooth margins, without echogenic foci. Prior size: .7 x .4 x .6 cm Bilateral neck scanned, no evidence of lymphadenopathy. IMPRESSION: 1. Mildly suspicious nodule with multiple additional nodules discussed above. Continued monitoring be considered. 2017 ACR TI-RADS LEVEL: TR-RADS 3 - Mildly Suspicious: Follow if > 1.5 cm, FNA if > 2.5 cm *Highest TI-RADS level nodule reported
[2021-07-13 17:57] LABS: ALT 38 U/L (8-44); AST 26 U/L (13-35); African American GFR (CKD) 105.6 (60.0-200.0); Albumin 4.7 g/dL (3.8-4.9); Albumin/Globulin Ratio 2.73 (1.60-3.17); Alkaline Phosphatase 63 U/L (41-126); BUN/Creat Ratio 22.68 Ratio (12.00-20.00); Blood Urea Nitrogen 16.6 mg/dL (9.0-27.0); Calcium 9.9 mg/dL (8.7-10.3); Carbon Dioxide 23.6 mmol/L (20.0-27.5); Chloride 107 mmol/L (96-109); Chol/HDL Ratio 3.66 Ratio; Globulin 1.7 g/dL (1.6-3.3); Glucose 95 mg/dL (70-110); LDL Cholesterol,Calculated 152.4 mg/dL (0.0-131.0); Non-African American GFR(CKD) 91.1 (60.0-200.0); Potassium 4.7 mmol/L (3.5-5.5); Sodium 143 mmol/L (135-145); Total Protein 6.5 g/dL (6.2-8.2); VLDL Calculation 17.66 mg/dL (5.00-40.00)
== END | disposition home or self-care (01) ==
LOC: RADUSWWP 08:15
PROVIDERS: ATTEND Internal Medicine Endocrinology, Diabetes & Metabolism
DX: Z00.00 Encounter for general adult medical examination without abnormal findings (principal); E55.9 Vitamin D deficiency, unspecified; E04.2 Nontoxic multinodular goiter
CPT/HCPCS: 36415; 76536; 80053; 80061; 82306; 83036; 84439; 84443

== ENCOUNTER → 2021-07-13 | Outpatient (CLI) | payer BC ==
--- NOTE | 2021-07-16 10:17 | MM ---
Reason for exam: screening (asymptomatic). Last mammogram was performed 1 year ago. History: Patient is postmenopausal. Family history of breast cancer in mother at age 79. Took hormonal contraceptives for 15 years. Physical Findings: A clinical breast exam by your physician is recommended on an annual basis and results should be correlated with mammographic findings. MG 3D Screening Mammo W/Cad Bilateral CC and MLO view(s) were taken. Prior study comparison: July 12, 2020, bilateral MG 3d screening mammo w/cad. March 29, 2019, bilateral MG 3d screening mammo w/cad. There are scattered fibroglandular densities. There is chronic nodularity in the right breast. There is no discrete abnormality. ASSESSMENT: Benign, BI-RAD 2 RECOMMENDATION: Routine screening mammogram of both breasts in 1 year.
== END | disposition home or self-care (01) ==
LOC: RADMAMWWP 08:19
PROVIDERS: ATTEND Family Medicine
DX: Z12.31 Encounter for screening mammogram for malignant neoplasm of breast (principal); Z78.0 Asymptomatic menopausal state; Z80.3 Family history of malignant neoplasm of breast
CPT/HCPCS: 77063; 77067

== ENCOUNTER → 2021-08-03 | Outpatient (CLI) | payer BC ==
--- NOTE | 2021-08-03 13:50 | US ---
EXAMINATION TYPE: US extremity nonvasc mass LT DATE OF EXAM: 08/03/2021 COMPARISON: NONE CLINICAL HISTORY: R22.32 LOCALIZED SWELLING MASS LUMP. palpable left shoulder scanned patient's area of concern, anterior left shoulder. isoechoic area = 1.3 x 0.5 x 1.0cm- possib le lipoma IMPRESSION: 1. Nonspecific solid appearing area of the palpable region. Consider a lipoma within the differential . MRI could further evaluate this finding.
== END | disposition home or self-care (01) ==
LOC: RADUSWWP 13:17
PROVIDERS: ATTEND Family Medicine
DX: R22.32 Localized swelling, mass and lump, left upper limb (principal)

== ENCOUNTER → 2022-07-11 | Outpatient (CLI) | payer BC ==
--- NOTE | 2022-07-11 08:48 | US ---
EXAMINATION TYPE: US thyroid st tissue head/neck DATE OF EXAM: 07/11/2022 COMPARISON: US 07/13/21 CLINICAL HISTORY: E04.2 MULTINODULAR GOITER. Multinodular goiter. GLAND SIZE: Right Lobe: 4.8 x 2.5 x 1.6 cm Overall Parenchyma: heterogenous Left Lobe: 4.2 x 1.3 x 1.4 cm Overall Parenchyma: heterogeneous Isthmus Thickness: 0.24 cm NODULES RIGHT: # of nodules measured on right: 3 1. 1.9 X 1.6 x 1.3 cm, mid mid, Prior size: 1.4 x 1.1 x 1.4 cm TIRADS Score: 0 TIRADS Category 1: Benign Composition: Cystic or almost completely cystic (0 points). Recommendation: No FNA 2. 0.7 X 0.6 x 0.5 cm, mid medial, Prior size: Does not correlate TIRADS Score: 4 TIRADS Category 4: Moderately Suspicious Composition: Solid or almost completely solid (2 points). Echogenicity: Hypoechoic (2 points). Shape: Wider than tall (0 points). Margin: Smooth (0 points). Echogenic foci: None or large comet-tail artifacts (0 points) Recommendation: If >1.5cm: FNA; If >1cm: Follow up at 1,2, 3,5 years 3. 0.5 X 0.8 x 0.6 cm, lower medial, Prior size: 0.6 x 0.6 x 0.4 cm TIRADS Score: 3 TIRADS Category 3: Mildly Suspicious Composition: Solid or almost completely solid (2 points). Echogenicity: Hyperechoic or isoechoic (1 point). Shape: Wider than tall (0 points). Margin: Smooth (0 points). Echogenic foci: None or large comet-tail artifacts (0 points) Recommendation: If >2.5cm: FNA; If >1.5cm: Follow up at 1,3,5 years LEFT: # of nodules measured on left: 2 1. 1.6 X 1.6 x 0.9 cm, mid mid, Prior size: 1.4 x 0.8 x 1.2 cm TIRADS Score: 3 TIRADS Category 3: Mildly Suspicious Composition: Solid or almost completely solid (2 points). Echogenicity: Hyperechoic or isoechoic (1 point). Shape: Wider than tall (0 points). Margin: Smooth (0 points). Echogenic foci: None or large comet-tail artifacts (0 points) Recommendation: If >2.5cm: FNA; If >1.5cm: Follow up at 1,3,5 years 2. 0.7 X 0.7 x 0.5 cm, mid mid, Prior size: 0.5 x 0.4 x 0.5 cm TIRADS Score: 4 TIRADS Category 4: Moderately Suspicious Composition: Solid or almost completely solid (2 points). Echogenicity: Hypoechoic (2 points). Shape: Wider than tall (0 points). Margin: Smooth (0 points). Echogenic foci: None or large comet-tail artifacts (0 points) Recommendation: If >1.5cm: FNA; If >1cm: Follow up at 1,2, 3,5 years ISTHMUS: # of nodules measured in the isthmus: 1 1. 0.9 X 0.7 x 0.3 cm Prior size: 0.8 x 0.4 x 0.6 cm TIRADS Score: 3 TIRADS Category 3: Mildly Suspicious Composition: Solid or almost completely solid (2 points). Echogenicity: Hyperechoic or isoechoic (1 point). Shape: Wider than tall (0 points). Margin: Smooth (0 points). Echogenic foci: None or large comet-tail artifacts (0 points) Recommendation: If >2.5cm: FNA; If >1.5cm: Follow up at 1,3,5 years Bilateral neck scanned, no evidence of lymphadenopathy. IMPRESSION: Bilateral direct nodules with recommendations as described above. Nodules meet criteria for follow-up .
[2022-07-11 12:05] LABS: T4, Free (Free Thyroxine) 1.13 ng/dL (0.800-1.800)
== END | disposition home or self-care (01) ==
LOC: RADUSWWP 07:43
PROVIDERS: ATTEND Internal Medicine Endocrinology, Diabetes & Metabolism
DX: E04.2 Nontoxic multinodular goiter (principal)
CPT/HCPCS: 36415; 76536; 84439; 84443

== ENCOUNTER 2022-08-06 11:23 | Day surgery (SDC) | payer BC ==
[2022-08-06] MEDS ORDERED: ALPRAZolam 0.5 MG TAB PO PRN (12:12)
[2022-08-06 13:09] VITALS: TEMP 97.8
[2022-08-06 14:06] VITALS: RESP 18
[2022-08-06 14:07] VITALS: BP 122/73; PULSE 66
--- NOTE | 2022-08-06 14:12 | US ---
ULTRASOUND GUIDED FNA THYROID BIOPSY: CLINICAL HISTORY: Left thyroid nodule FINDINGS: The procedure was explained to the patient. The risks, complications, benefits and alternatives were discussed and any questions were answered. Informed consent was obtained. Patient was placed supin e on the ultrasound table and prepped and draped in the usual sterile fashion. Utilizing a 25 gauge needle, five passes were made into the left thyroid nodule. Patient was stable throughout the procedure. Pathology is pending. All elements of maximal barrier technique were utilized. IMPRESSION: 1. Successful ultrasound guided FNA thyroid biopsy.
== END 2022-08-06 14:23 | disposition home or self-care (01) ==
LOC: RADPROMAIN 11:23
PROVIDERS: ATTEND Internal Medicine Endocrinology, Diabetes & Metabolism
DX: E04.1 Nontoxic single thyroid nodule (principal)
CPT/HCPCS: 10005; 88173; 88305

== ENCOUNTER → 2022-08-06 | Outpatient (CLI) | payer BC ==
--- NOTE | 2022-08-07 07:48 | MM ---
Reason for Exam: Screening (asymptomatic). Last screening mammogram was performed 12 month(s) ago. Patient History: Menarche at age 12. First Full-Term at age 28. Postmenopausal. Patient has history of breast feeding. Patient used Hormonal Contraceptives for 15 years. Mother had breast cancer, age 79. Risk Values: Sonal 5 year model risk: 2.6%. NCI Lifetime model risk: 14.6%. Prior Study Comparison: 06/14/2015 Right Diagnostic Mammogram, [facility]. 12/08/2015 Bilateral Screening Mammogram, [facility]. 01/07/2017 Bilateral Screening Mammogram, [facility]. 01/21/2018 Bilateral Screening Mammogram, [facility]. 03/29/2019 Bilateral Screening Mammogram, [facility]. 07/12/2020 Bilateral Screening Mammogram, [facility]. 07/13/2021 Bilateral Screening Mammogram, [facility]. Tissue Density: There are scattered fibroglandular densities. Findings: Analyzed By CAD. A few tiny benign-appearing round calcifications in the right breast are noted. There is no suspicious group of microcalcifications or new suspicious mass in either breast. Overall Assessment: Benign, BI-RAD 2 Management: Screening Mammogram of both breasts in 1 year. A clinical breast exam by your physician is recommended on an annual basis and results should be correlated with mammographic findings. Electronically signed and approved by: Christiano Cota M.D.
== END | disposition home or self-care (01) ==
LOC: RADMAMWWP 11:04
PROVIDERS: ATTEND Family Medicine
DX: Z12.31 Encounter for screening mammogram for malignant neoplasm of breast (principal); Z78.0 Asymptomatic menopausal state; Z80.3 Family history of malignant neoplasm of breast
CPT/HCPCS: 77063; 77067

== ENCOUNTER → 2023-08-22 | Outpatient (CLI) | payer BC ==
[2023-08-22 16:15] LABS: T4, Free (Free Thyroxine) 1.4 ng/dL (0.80-1.80)
--- NOTE | 2023-08-22 16:34 | US ---
EXAMINATION TYPE: US thyroid st tissue head/neck DATE OF EXAM: 08/22/2023 COMPARISON: Ultrasound-guided FNA 08/06/2022, multiple thyroid ultrasound with most recent 07/11/2022 CLINICAL INDICATION: Female, 58 years old with history of E04.2 NONTOXIC MULTINODULAR GOITER; Follow up nodules. Not on thyroid meds. Hx FNA GLAND SIZE: Right Lobe: 4.8 x 1.8 x 1.5 cm Overall Parenchyma: heterogeneous Left Lobe: 3.5 x 1.5 x 1.2 cm Overall Parenchyma: heterogeneous Isthmus Thickness: 0.3 cm NODULES RIGHT: # of nodules measured on right: 3 1. 1.6 X 1.5 x 1.3 cm, mid mid, cystic or almost completely cystic, anechoic nodule, which is wider than tall, with smooth margins, without echogenic foci. TR 1. Stable from prior exam. Prior size: 1.9 x 1.6 x 1.3 cm 2. 0.8 X 0.8 x 0.7 cm, mid medial, solid or almost completely solid, isoechoic nodule, which is wid er than tall, with smooth margins, without echogenic foci. TR 3. Relatively stable from prior exam. Prior size: 0.7 x 0.6 x 0.5 cm 3. 0.4 X 0.6 x 0.5 cm, lower medial, solid or almost completely solid, hyperechoic nodule, which is wider than tall, with smooth margins, without echogenic foci. TR 3. Stable from prior exam. Prior size: 0.5 x 0.8 x 0.6 cm LEFT: # of nodules measured on left: 2 1. 1.3 X 1.1 x 0.6 cm, mid mid, solid or almost completely solid, isoechoic nodule, which is wider than tall, with smooth margins, without echogenic foci. TR 3. Slightly smaller from prior exam. Prior size: 1.6 x 1.6 x 0.9 cm 2. 0.7 X 0.5 x 0.5 cm, mid mid, mixed cystic and solid, hypoechoic nodule, which is wider than keven l, with smooth margins, without echogenic foci. TR 3. Stable from prior exam. Prior size: 0.7 x 0.7 x 0.5 cm ISTHMUS: # of nodules measured in the isthmus: 1 1. 0.6 X 0.6 x 0.4 cm solid or almost completely solid, hypoechoic nodule, which is wider than tall , with smooth margins, without echogenic foci. Prior size: 0.9 x 0.7 x 0.3 cm Bilateral neck scanned, no evidence of lymphadenopathy. IMPRESSION: Overall relatively stable examination with no new or enlarging thyroid nodules.
== END | disposition home or self-care (01) ==
LOC: RADUSWWP 06:45
PROVIDERS: ATTEND Internal Medicine Endocrinology, Diabetes & Metabolism
DX: E04.2 Nontoxic multinodular goiter (principal)
CPT/HCPCS: 76536; 84439; 84443

== ENCOUNTER → 2023-08-22 | Outpatient (CLI) | payer BC ==
--- NOTE | 2023-08-25 14:49 | MM ---
Reason for Exam: Screening (asymptomatic). Last mammogram was performed 1 year(s) and 1 month(s) ago. Patient History: Menarche at age 12. First Full-Term at age 28. Postmenopausal. Patient has history of breast feeding. Currently using Estrogen, starting at age 56. Patient used Hormonal Contraceptives for 15 years. Mother had breast cancer, age 79. Risk Values: Sonal 5 year model risk: 2.7%. NCI Lifetime model risk: 14.2%. Prior Study Comparison: 07/12/2020 Bilateral Screening Mammogram, [facility]. 07/13/2021 Bilateral Screening Mammogram, [facility]. 08/06/2022 Bilateral MG 3D screening mammo w/cad, [facility]. Tissue Density: The breasts are almost entirely fatty. Findings: Analyzed By CAD. Right breast: There is no suspicious group of microcalcifications or new suspicious mass. Left breast: There is no suspicious group of microcalcifications or new suspicious mass. Overall Assessment: Negative, BI-RAD 1 Management: Screening Mammogram of both breasts in [address] [facility] will attempt to contact patient to return for supplemental views and ultrasound if indicated. Patient should continue monthly self-breast exams. A clinical breast exam by your physician is recommended on an annual basis. This exam should not preclude additional follow-up of suspicious palpable abnormalities. Note on Sonal scores and lifetime risk: 1. A Sonal score greater than 3% is considered moderate risk. If this is the case, consider specialist referral to assess eligibility for a risk reducing agent. 2. If overall lifetime risk for the development of breast cancer is 20% or higher, the patient may qualify for future screening with alternating mammogram and breast MRI. Electronically signed and approved by: Riaz Mann DO
== END | disposition home or self-care (01) ==
LOC: RADMAMWWP 06:42
PROVIDERS: ATTEND Family Medicine
DX: Z12.31 Encounter for screening mammogram for malignant neoplasm of breast (principal); Z80.3 Family history of malignant neoplasm of breast; Z78.0 Asymptomatic menopausal state
CPT/HCPCS: 77063; 77067

== ENCOUNTER → 2024-08-25 | Outpatient (CLI) | payer BC ==
--- NOTE | 2024-08-25 11:17 | MM ---
Reason for Exam: Screening (asymptomatic). Last screening mammogram was performed 12 month(s) ago. Patient History: Menarche at age 12. First Full-Term at age 28. Postmenopausal. Patient has history of breast feeding. Currently using Estrogen, starting at age 56. Patient used Hormonal Contraceptives for 15 years. Mother had breast cancer, age 79. Risk Values: Sonal 5 year model risk: 2.8%. NCI Lifetime model risk: 13.9%. Prior Study Comparison: 07/13/2021 Bilateral Screening Mammogram, [facility]. 08/06/2022 Bilateral MG 3D screening mammo w/cad, [facility]. 08/22/2023 Bilateral MG 3D screening mammo w/cad, [facility]. Tissue Density: There are scattered areas of fibroglandular density. Findings: Analyzed By CAD. Stable benign-appearing subcentimeter lymph node towards the right axilla. There is no suspicious group of microcalcifications or new suspicious mass in either breast. Overall Assessment: Negative, BI-RAD 1 Management: Screening Mammogram of both breasts in 1 year. . Patient should continue monthly self-breast exams. A clinical breast exam by your physician is recommended on an annual basis. This exam should not preclude additional follow-up of suspicious palpable abnormalities. Note on Sonal scores and lifetime risk: 1. A Sonal score greater than 3% is considered moderate risk. If this is the case, consider specialist referral to assess eligibility for a risk reducing agent. 2. If overall lifetime risk for the development of breast cancer is 20% or higher, the patient may qualify for future screening with alternating mammogram and breast MRI. [facility], , 08/25/2024 11:14 AM. Electronically signed and approved by: Christiano Cota M.D.
== END | disposition home or self-care (01) ==
LOC: RADMAMWWP 09:47
PROVIDERS: ATTEND Family Medicine
DX: Z12.31 Encounter for screening mammogram for malignant neoplasm of breast (principal); R92.323 Mammographic fibroglandular density, bilateral breasts; Z78.0 Asymptomatic menopausal state; Z92.0 Personal history of contraception; Z80.3 Family history of malignant neoplasm of breast
CPT/HCPCS: 77063; 77067

== ENCOUNTER → 2024-08-25 | Outpatient (CLI) | payer BC ==
--- NOTE | 2024-08-25 10:59 | US ---
EXAMINATION TYPE: US thyroid st tissue head/neck DATE OF EXAM: 08/25/2024 COMPARISON: US 08/22/2023 CLINICAL INDICATION: Female, 59 years old with history of E04.2 NONTOXIC MULTINODULAR GOITER; F/U TECHNIQUE: Grayscale and color Doppler imaging of the thyroid gland. FINDINGS: GLAND SIZE: Right Lobe: 4.9 x 1.8 x 2.0 cm Overall Parenchyma: homogeneous Left Lobe: 3.9 x 1.2 x 1.4 cm Overall Parenchyma: homogeneous Isthmus Thickness: 0.2 cm NODULES RIGHT: # of nodules measured on right: 3 1. 1.6 X 1.6 x 1.6 cm, mid mid, cystic or almost completely cystic, TR 3 nodule, which is wider ann n tall, with lobulated or irregular margins, without echogenic foci. Prior size: 1.6 x 1.3 x 1.5 cm 2. 1.1 X 1.2 x 1.3 cm, lower medial, solid or almost completely solid, hypoechoic TR 4 nodule, whic h is wider than tall, with smooth margins, without echogenic foci. Prior size: 0.8 x 0.7 x 0.8 cm 3. 0.3 X 0.6 x 0.4 cm, lower medial, solid or almost completely solid, hyperechoic TR 3 nodule, whi ch is taller than wide, with smooth margins, without echogenic foci. Prior size: 0.4 x 0.4 x 0.6 cm LEFT: # of nodules measured on left: 2 1. 1.4 X 0.9 x 1.3 cm, lower medial, solid or almost completely solid, hyperechoic TR 3 nodule, whi ch is wider than tall, with smooth margins, without echogenic foci. Prior size: 1.3 x 0.6 x 1.1 cm 2. 0.7 X 0.4 x 0.5 cm, lower medial, solid or almost completely solid, hypoechoic TR 4 nodule, whi ch is wider than tall, with smooth margins, without echogenic foci. Prior size: 0.7 x 0.5 x 0.5 cm ISTHMUS: # of nodules measured in the isthmus: 1 1. 0.6 X 0.3 x 0.4 cm solid or almost completely solid, hypoechoic TR 4 nodule, which is wider than tall, with smooth margins, without echogenic foci. Prior size: 0.6 x 0.4 x 0.6 cm Bilateral neck scanned, no evidence of lymphadenopathy. IMPRESSION: 1. Correlate for multinodular goiter. 2. No solid TR4 nodule at the right lower pole has increased in size, currently 1.3 cm versus 8 mm, p reviously. Ongoing follow-up recommended. 3. Other scattered TR3 and TR4 nodules not significantly changed. Highest TI-RADS level nodule reported: 2017 ACR TI-RADS LEVEL: TI-RADS 4 - Moderately Suspicious: Follow if > 1 cm, FNA if > 1.5 cm [facility], , 08/25/2024 10:57 AM
--- NOTE | 2024-08-25 11:17 | MM ---
Reason for Exam: Screening (asymptomatic). Last screening mammogram was performed 12 month(s) ago. Patient History: Menarche at age 12. First Full-Term at age 28. Postmenopausal. Patient has history of breast feeding. Currently using Estrogen, starting at age 56. Patient used Hormonal Contraceptives for 15 years. Mother had breast cancer, age 79. Risk Values: Sonal 5 year model risk: 2.8%. NCI Lifetime model risk: 13.9%. Prior Study Comparison: 07/13/2021 Bilateral Screening Mammogram, [facility]. 08/06/2022 Bilateral MG 3D screening mammo w/cad, [facility]. 08/22/2023 Bilateral MG 3D screening mammo w/cad, [facility]. Tissue Density: There are scattered areas of fibroglandular density. Findings: Analyzed By CAD. Stable benign-appearing subcentimeter lymph node towards the right axilla. There is no suspicious group of microcalcifications or new suspicious mass in either breast. Overall Assessment: Negative, BI-RAD 1 Management: Screening Mammogram of both breasts in 1 year. . Patient should continue monthly self-breast exams. A clinical breast exam by your physician is recommended on an annual basis. This exam should not preclude additional follow-up of suspicious palpable abnormalities. Note on Sonal scores and lifetime risk: 1. A Sonal score greater than 3% is considered moderate risk. If this is the case, consider specialist referral to assess eligibility for a risk reducing agent. 2. If overall lifetime risk for the development of breast cancer is 20% or higher, the patient may qualify for future screening with alternating mammogram and breast MRI. [facility], , 08/25/2024 11:14 AM. Electronically signed and approved by: Christiano Cota M.D.
[2024-08-25 16:15] LABS: T4, Free (Free Thyroxine) 1.01 ng/dL (0.80-1.80)
== END | disposition home or self-care (01) ==
LOC: RADUSWWP 09:39
PROVIDERS: ATTEND Internal Medicine Endocrinology, Diabetes & Metabolism
DX: Z12.31 Encounter for screening mammogram for malignant neoplasm of breast (principal); R92.323 Mammographic fibroglandular density, bilateral breasts; E04.2 Nontoxic multinodular goiter; Z78.0 Asymptomatic menopausal state; Z80.3 Family history of malignant neoplasm of breast; Z92.0 Personal history of contraception
CPT/HCPCS: 36415; 76536; 77063; 77067; 84439; 84443

== ENCOUNTER 2024-09-28 09:08 | Day surgery (SDC) | payer BC ==
[2024-09-27 12:50] VITALS: BMI 25.9
[~2024-09-28 09:08] MED LIST changes: -LACTATED RINGERS 1,000 ML IV SCH; -LIDOCAINE 1% (10MG/ML) FOR IV START INTRADERMA ONE; +LIDOCAINE 1% (10MG/ML) FOR IV START INTRADERMA PRN; -LIDOCAINE 1% INJ 10MG/ML (20 ML MDV) ONE; -PROPOFOL 10 MG/ML 20 ML VIAL IV ONE
[2024-09-28 10:05] VITALS: TEMP 97.2
[2024-09-28] MEDS: LACTATED RINGERS 1,000 ML IV SCH (10:06)
[2024-09-28] MEDS: IV FLUID CONTINUATION 1,000 ML IV ONE (10:07)
[2024-09-28] MEDS ORDERED: PROPOFOL 10 MG/ML 20 ML VIAL IV ONE (10:52)
--- NOTE | 2024-09-28 11:08 | P.PCN ---
Date of Procedure: 09/28/24 Procedure(s) Performed: BRIEF HISTORY: Patient is a 59-year-old pleasant white female scheduled for an elective colonoscopy as a part of screening for history of colon polyps and family history of colon cancer. Her mother was diagnosed with colon cancer age 80. PROCEDURE PERFORMED: Colonoscopy with snare polypectomy. PREOPERATIVE DIAGNOSIS: Screening for history of colon polyps and family history of colon cancer. IV sedation per Anesthesia. PROCEDURE: After informed consent was obtained, the patient, was brought into the endoscopy unit. IV sedation was administered by Anesthesia under continuous monitoring. Digital rectal examination was normal. Initially the Olympus CF-160 flexible video colonoscope was then inserted in the rectum, gradually advanced into the cecum without any difficulty. Careful examination was performed as the scope was gradually being withdrawn. Ileocecal valve and the appendiceal orifice were visualized and appeared normal. Prep was excellent. Mucosa of the cecum, ascending colon, transverse colon, descending colon appeared normal. In the sigmoid colon there is a 5 mm sessile polyp removed by cold snare polypectomy. Scattered sigmoid diverticulosis seen. Rest of the, sigmoid colon, and rectum appeared normal. Retroflexion was performed in the rectum and no lesions were seen. The patient tolerated the procedure well. IMPRESSION: 5 mm sigmoid colon polyp status post cold snare polypectomy Scattered sigmoid diverticulosis RECOMMENDATIONS: Findings of this examination were discussed with the patient as well as family. She was advised to follow-up with the biopsy results. Recommended repeat colonoscopy in 5 years because of the family history of colon cancer.
[2024-09-28 11:33] VITALS: BP 122/85; PULSE 63; RESP 16
== END 2024-09-28 11:53 | disposition home or self-care (01) ==
LOC: ORWHC2ENDO 09:08
PROVIDERS: ATTEND Internal Medicine Gastroenterology
DX: Z12.11 Encounter for screening for malignant neoplasm of colon (principal); K63.5 Polyp of colon; K57.30 Diverticulosis of large intestine without perforation or abscess without bleeding; Z86.0100 Personal history of colon polyps, unspecified; Z80.0 Family history of malignant neoplasm of digestive organs; Z79.899 Other long term (current) drug therapy; Z88.0 Allergy status to penicillin
CPT/HCPCS: 88305; 88342; 88341; 45385; J2704